=== PATIENT | female | born 1960 | race Caucasian/White ===

== ENCOUNTER 2018-02-18 12:46 | Inpatient (IN) ==
[2018-02-18] MEDS ORDERED: IPRATROPIUM/ALBUTEROL SULFATE 3 ML NEB NEB ONE ×3 (12:57→15:20)
--- NOTE | 2018-02-18 13:13 | PDOC ---
Upper Respiratory HPI - General Chief Complaint: Respiratory Complaint Stated Complaint: DYSPNEA Date Seen by Provider: 02/18/18 Time Seen by Provider: 13:08 Source: POSITIVE: Patient Exam Limitations: POSITIVE: No limitations Nurse's Notes Reviewed & Considered: Yes EMS Report Reviewed & Considered: Unavailable - History of Present Illness Initial Comments: This is a 57-year-old female who presents to the emergency department with a history of increasing shortness of breath and a cough over the last 4 days prior to arrival. She's also had some nasal congestion runny nose and a mild sore throat as well. She was seen by her primary care provider earlier in the week, and was given a shot of anabiotic's and then a prescription for an antibiotic, although she cannot member what it is. She states the shortness of breath became worse today, so she came to the emergency department for treatment. She does have some mild chest pain with the cough, she also has a subjective fever and some chills. She also complains of upper back pain due to the coughing. She is coughing up sputum. She does smoke cigarettes, although she has not smoked for the last 4 days. She is not on oxygen at home, is not normally on inhalers. - Patient Home Medications Home Medications: Home Medications dexlansoprazole 60 mg capsule,biphase delayed release 60 mg PO QDAY 06/18/17 xqcopk-tiyuipop-rwlcjxi 4,000-25,000-20,000 unit capsule,delayed rel 1 cap PO DAILY 06/18/17 mirtazapine 45 mg tablet 45 mg PO QHS 06/18/17 multivit with minerals-folic acid 200 mcg-biotin 300 mcg chew tablet 1 tab PO DAILY 06/18/17 oxycodone 10 mg tablet 30 mg PO Q4-6H PRN 06/18/17 oxycodone ER 10 mg tablet,crush resistant,extended release 12 hr 10 mg PO Q12H 06/18/17 food supplement, lactose-reduced oral liquid 1 ea PO BID-TID #2832 ml 06/24/17 doxycycline hyclate 100 mg capsule 100 mg PO BID #20 cap 02/15/18 ipratropium-albuterol 0.5 mg-3 mg(2.5 mg base)/3 mL nebulization soln 3 ml INH Q4-6H PRN #180 ml 02/15/18 prednisone 20 mg tablet 40 mg PO QDAY 5 Days #10 tab 02/15/18 - Patient Allergies Allergies/Adverse Reactions: Allergies 3 Allergy/AdvReac Type Severity Reaction Status Date / Time No Known Allergies Allergy Verified 02/15/18 09:43 Past Medical History - heen HEENT History: Denies History Cardiovascular History: Hypertension Respiratory History: COPD, Other (please comment) Additional Respiratory History: chronic tobacco abuse Gastrointestinal History: GERD, Gallbladder Disease, Pancreatitis, Other ( please comment) Additional Gastrointestinal History: PT REPORTS "PANCREAS STOPPED PRODUCING LIPASE". MARIBEL. onging abd pain. constipation Genitourinary History: Denies History Endocrine History: Denies History Musculoskeletal History: Arthritis, Joint Pain, Other (please comment) Prosthesis or Implant: Yes (RIGHT HIP) Additional Musculoskeletal History: Rt hip replacement. 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 MARIBEL Anesthesia Reactions: No Malignant Hyperthermia: No Significant Family History: No pertinent family hx Past Medical History Reviewed: Reviewed - No Changes ROS - Limitations ROS Limitations: No Limitations Constitution: REPORTS: Chills, Fever (Subjective) Cardiovascular: REPORTS: Chest Pain (With coughing) Respiratory: REPORTS: Cough Productive, Hurts To Breathe, Shortness Of Breath Neurological: REPORTS: Dizziness Gastrointestinal: DENIES: Abdominal Pain, Nausea, Vomitting Musculoskeletal: REPORTS: Back Pain (Upper back pain due to coughing). DENIES: Lower Extremity Swelling Genitourinary: REPORTS: Denies Symptoms ENT: REPORTS: Nasal Drainage, Sore Throat Skin: REPORTS: Denies Skin Symptoms Upper Respiratory/Fever Exam - General Appearance General Appearance: REPORTS: Alert, Moderate Distress - HEENT HEENT: POSITIVE: PERRL. NEGATIVE: Scleral Icterus - Neck Neck: REPORTS: Normal Inspection, Supple - Respiratory Respiratory: REPORTS: Fatigue, Decreased Air Movement (Poor inspiratory effort) , Speaks Broken Sentences, Other (Patient is to tachypneic) - Abdomen Additional Abdominal Details: Abdomen soft, nontender, nondistended, no obvious organomegaly. Active bowel sounds. - Skin Skin: REPORTS: Warm, Dry - Extremities Additional Extremities Details: No pitting edema. - Neurological / Psychological Neurological: POSITIVE: Affect Apporpriate Upper Resp/Fever Progress - Results Reviewed by me Xrays/CTs/US Reviewed by me: Yes Discussed with Radiologist: Yes Radiology Findings: No evidence of any pneumonia Lab Results Reviewed by Me: Yes CBC and BMP: 02/18/18 13:36 02/18/18 13:36 Lab Results:: Laboratory Results 3 02/18/18 02/18/18 02/18/18 13:00 13:36 13:36 WBC 8.72 RBC 6.31 H Hgb 17.4 H Hct 53.0 H MCV 84.0 MCH 27.6 MCHC 32.8 L RDW Std Deviation 45.2 RDW Coeff of Steve 14.8 H Plt Count 268 MPV 10.1 Neutrophils % (Manual) 52 Band Neutrophils % 0 Lymphocytes % (Manual) 42 Monocytes % (Manual) 5 Eosinophils % (Manual) 1 Basophils % (Manual) 0 Metamyelocytes % 0 Myelocytes % 0 Promyelocytes % 0 Blast Cells 0 WBC Morphology Comment See comments Plt Morphology Comment Normal morphology RBC Morph Comment Normal morphology VBG pH 7.39 VBG pCO2 40 L VBG HCO3 24 VBG Base Excess -1 Sodium 140 Potassium 4.9 Chloride 101 Carbon Dioxide 24 Anion Gap 15 BUN 22 Creatinine 0.9 Estimated GFR > 60 BUN/Creatinine Ratio 24.44 H Glucose 89 Calculated Osmolality 291.0 Calcium 9.6 - Patient's Progress Re-Examine Time: 16:11 Re-Examine Comment: Work of breathing mildly improved but still feeling short of breath. Coughing better. Status: POSITIVE: Improved MDM / ED Course: Emergency room course: After initial evaluation, an IV was started, labs were drawn, x-ray was ordered. She was given multiple DuoNeb and albuterol nebs as well as IV steroids. When all the labs reviewed, x-rays reviewed, they're discussed with the patient. After the multiple of the posterior treatments, she her cough is improved and she felt somewhat better, but still feeling short of breath. She is still eating 5 L by oxygen mask to keep her sats above 90%. Due to the persistent significant hypoxemia, I believe she is being admitted as a COPD exacerbation. Air Movement: Fair Antibiotics Given: No Nebulizer Treatment Given:: Yes Quality Measure Initiative: CAP: POSITIVE: SaO2 - Consult Counseled: POSITIVE: Patient, RE: Lab Results, RE: Radiology Results, RE: DX Patient Care Time - Estimated PCT Patient Care Time (In Minutes): 20 Vital Signs - Recent Vital Signs Vital Signs: Vital Signs (Last 8 hours) Temp Pulse Pulse Resp BP Pulse Ox 02/18/18 15:39 97 24 02/18/18 15:38 95 20 96 02/18/18 15:26 95 24 02/18/18 15:25 99 20 96 02/18/18 14:25 90 24 02/18/18 14:24 104 H 20 99 02/18/18 13:52 82 22 02/18/18 13:51 80 20 98 02/18/18 13:24 87 20 02/18/18 13:23 84 20 99 02/18/18 12:59 101 H 22 02/18/18 12:58 102 H 24 94 02/18/18 12:48 95.7 F L 113 H 22 161/103 84 Discharge Clinical Impression: COPD (chronic obstructive pulmonary disease) with chronic bronchitis Discharge Disposition: Admit to Inpatient Condition: Serious Patient Instructions Given at Discharge: COPD (Chronic Obstructive Pulmonary Disease) (ED) Follow Up With: IRINA FLOWERS [Primary Care Provider] - Date Decision to Admit to Inpatient: 02/18/18 Time Decision to Admit to Inpatient: 16:14
[2018-02-18] MEDS ORDERED: Sodium Chloride 0.9% 1,000 ML PRIMARY IV ONE (13:15)
[2018-02-18] MEDS ORDERED: methylPREDNISolone 125 MG/2 ML VIAL IVP ONE (13:15)
[2018-02-18] MEDS: ALBUTEROL SULFATE 2.5 MG/3 ML NEB PRN ×3 (13:23→14:24)
[2018-02-18 13:40] LABS: Hemoglobin [HGB] 17.4 g/dL (12.0-16.0); MEAN CORPUSCULAR HEMOGLOBIN 27.6 PG (27-31); MEAN CORPUSCULAR HGB CONC 32.8 g/dL (33-37); MEAN PLATELET VOLUME 10.1 FL (7.4-12.2); RED BLOOD COUNT 6.31 10^6/uL (4.20-5.40)
[2018-02-18 13:51] LABS: BLOOD UREA NITROGEN 22 mg/dL (7-22); BUN/CREATININE RATIO 24.44 (6-20)
[2018-02-18 13:58] LABS: PLATELET MORPHOLOGY COMMENT NORMAL MORPHOLOGY (NORM); RBC MORPHOLOGY COMMENT NORMAL MORPHOLOGY (NORM); WBC MORPHOLOGY COMMENT SEE COMMENTS (NORM)
[2018-02-18 13:59] LABS: BAND NEUTROPHILS % 0 % (0-10); BASOPHILS % (MANUAL) 0 % (0-1); EOSINOPHILS % (MANUAL) 1 % (0-8); METAMYELOCYTES % 0 %; MONOCYTES % (MANUAL) 5 % (0-12); MYELOCYTES % 0 %; NEUTROPHILS % (MANUAL) 52 % (50-80); PROMYELOCYTES % 0 %
[2018-02-18 14:00] LABS: VENOUS PH 7.39 (7.32-7.42)
--- NOTE | 2018-02-18 14:02 | EKG ---
Measurements Intervals [place] Rate: 89 P: 82 [place]: 141 QRS: 83 QRSD: 81 T: 90 QT: 339 QTc: 386 Interpretive Statements SINUS RHYTHM WITH OCCASIONAL VENTRICULAR PREMATURE COMPLEXES POSSIBLE RIGHT ATRIAL ENLARGEMENT NONSPECIFIC ST- T-WAVE ABNORMALITY Compared to ECG 11/14/2015 14:58:45 Ventricular premature complex(es) now present T-wave abnormality now present Electronically Signed On 02-19-18 11:30:14 MST by Dung Bethea [email or web address]
--- NOTE | 2018-02-18 14:11 | DI ---
XR CXR 2VW PA/LAT,02/18/2018 1:15 PM: Clinical History: Cough Previous Exam: February 15, 2018 Findings: PA and lateral views of the chest are obtained, and demonstrate clear lungs. The cardiomediastinum an d bony thorax are unremarkable. Impression: No acute cardiopulmonary disease.
[2018-02-18] MEDS ORDERED: ALBUTEROL SULFATE 2.5 MG/3 ML NEB SCH (15:30)
[2018-02-18] MEDS ORDERED: ALBUTEROL SULFATE 2.5 MG/3 ML NEB ONE (15:34)
[2018-02-18] MEDS ORDERED: LIDOCAINE W/ SODIUM BICARB 0.5 ML SYR SUBD PRN (17:08)
[2018-02-18] MEDS ORDERED: ALBUTEROL SULFATE 2.5 MG/3 ML NEB PRN (17:08)
--- NOTE | 2018-02-18 17:08 | PDOC ---
HPI - History of Present Illness Date of Service: 02/18/18 Time of Service: 17:00 Chief Complaint: Cough, shortness of breath of one-week duration History of Present Illness: This is a 57 years old female with medical history significant for history of chronic pancreatitis, GERD, chronic pain syndrome who came into the hospital with history of cough and shortness of breath that started a week ago. a week ago she started to have congestion and some headache so her primary told her she had some allergies and to use some Claritin that did not help but 2 days ago she went to the urgent care as she was having now cough with phlegm production was clear and now yellow and increasing shortness of breath. She was diagnosed with COPD exacerbation and she was given antibiotic, steroid and breathing treatments. She continued to feel short of breath. however she did not use the breathing treatments only once and because of continuing to have symptoms she came into the ER. She was hypoxic she was put on 5 L of oxygen. She was given steroid, breathing treatment and was admitted. Currently she said she feels better compared to when she came in. Shee said the shortness of breath is exertional and when she go from her bed to the bathroom she feels short of breath. A month ago she said she probably could walk about a block. No PND no leg Swelling. No chest pain. Past Medical History Medical History: 1. Tobacco abuse. 2. Bilateral hip arthritis status post right total hip replacement. 3. Chronic pancreatitis. 4. Chronic intermittent abdominal pain of unclear etiology. Surgical History: 1. Right hip replacement. 2. Hysterectomy with left ovary removal Pertinent Family History: Significant for coronary artery disease in both of her parents. Past Social History: Smokes half pack per day. Used to drink but quit over 5 years ago. Worked as a [employer] until about November 2014. , no children. She used to use drugs not anymore Tobacco Use: Current Every Day Smoker Alcohol Use: None Medication / Allergies Home Medications: Home Medications 3 Medication Instructions Recorded Confirmed Type dexlansoprazole 60 mg 60 mg PO QDAY 06/18/17 02/18/18 History capsule,biphase delayed release [id number]-[id number]-lpuiliv 1 cap PO DAILY 06/18/17 02/18/18 History 4,000-25,000-20,000 unit capsule,delayed rel mirtazapine 45 mg tablet 45 mg PO QHS 06/18/17 02/18/18 History multivit with minerals-folic acid 1 tab PO DAILY 06/18/17 02/18/18 History 200 mcg-biotin 300 mcg chew tablet oxycodone 10 mg tablet 30 mg PO Q4-6H PRN 06/18/17 02/18/18 History oxycodone ER 10 mg tablet,crush 10 mg PO Q12H 06/18/17 02/18/18 History resistant,extended release 12 hr food supplement, lactose-reduced 1 ea PO BID-TID #2832 ml 06/24/17 02/18/18 Rx oral liquid doxycycline hyclate 100 mg capsule 100 mg PO BID #20 cap 02/15/18 02/18/18 Rx ipratropium-albuterol 0.5 mg-3 3 ml INH Q4-6H PRN #180 ml 02/15/18 02/18/18 Rx mg(2.5 mg base)/3 mL nebulization soln prednisone 20 mg tablet 40 mg PO QDAY 5 Days #10 tab 02/15/18 02/18/18 Rx Allergies/Adverse Reactions: Allergies 3 Allergy/AdvReac Type Severity Reaction Status Date / Time No Known Allergies Allergy Verified 02/15/18 09:43 Review of Systems - Review of Systems All Systems: Reviewed & No Additional Complaints Except as Stated Exam - Vitals Vital Signs: Vital Signs Temperature 97.3 F Temperature Source Temporal Artery Scan Pulse Rate [Pulse Oximeter 98 Right] Pulse Rate 97 Respiratory Rate 22 Blood Pressure [Left Arm] 161/103 Blood Pressure 152/81 Pulse Ox 97 Oxygen Flow Rate 6 Oxygen Delivery Method Oxymask Height 5 ft 9 in Weight 128 lb 9.6 oz - General General Appearance: No Acute Distress, Thin - Head Head Exam: Normal Inspection - Eye Eye Exam: POSITIVE: Normal Appearance - ENT ENT Exam: POSITIVE: Normal Exam - Neck Neck Exam: Normal Inspection - Respiratory Additional Respiratory Exam Details: Very poor air entry otherwise clear. - Cardiovascular Cardiovascular Exam: POSITIVE: RRR - GI/Abdominal GI/Abdominal Exam: POSITIVE: Normal Bowel Sounds, Non Tender, Non Distended, Soft, No Organomegaly - Rectal Rectal Exam: POSITIVE: Deferred - External Exam: POSITIVE: Deferred Exam: POSITIVE: Deferred - Extremities Extremities Exam: POSITIVE: Normal Inspection - Back Back Exam: POSITIVE: Normal Inspection - Neurological Neurological Exam: POSITIVE: Alert, Oriented x 3, CN II-XII Intact, No Facial Droop, Speech Intact / Clear, Moves All Extremities Equally - Psychiatric Psychiatric Exam: POSITIVE: Normal Affect - Integumentary Integumentary Exam: POSITIVE: Normal Color Results - Labs CBC and BMP: 02/18/18 13:36 02/18/18 13:36 - EKG Data -: EKG Interpreted by Me Rate: Normal EKG Shows Normal: Sinus Rhythm - EKG Data Additional EKG Details: Some ST depression in the inferior leads noted - Imaging Status: Report Reviewed by Me (Chest X ray No acute cardiopulmonary disease.) Assessment and Plan - Patient Problems (1) COPD exacerbation Current Visit: Yes Status: Acute Comment: We'll treat her as such will put her on steroids, antibiotics and breathing treatments. Continue with oxygen. Code(s): J44.1 - Chronic obstructive pulmonary disease with (acute) exacerbation (2) Chronic pancreatitis Current Visit: No Status: Chronic Comment: Continue with her enzyme replacement (3) Chronic abdominal pain Current Visit: No Status: Acute Comment: Probably secondary to her chronic hepatitis continue her previous pain medications Code(s): R10.9 - Unspecified abdominal pain; G89.29 - Other chronic pain (4) Gastroesophageal reflux disease Current Visit: No Status: Chronic Comment: Continue previous meds
[2018-02-18] MEDS: Sodium Chloride 0.9% 1,000 ML PRIMARY IV SCH (18:38)
[2018-02-18] MEDS: cefTRIAXone Inj 1 GM in Sodium Chloride 0.9% 100 ML IV SCH (18:38)
[2018-02-18] MEDS: oxyCODONE IR Tab 5 MG TAB PO PRN (18:40)
[2018-02-18] MEDS: IPRATROPIUM/ALBUTEROL SULFATE 3 ML NEB NEB SCH (18:53)
[2018-02-18] MEDS ORDERED: IPRATROPIUM BROMIDE 0.5 mg/2.5 ML NEB SCH (19:00)
[2018-02-18] MEDS ORDERED: Sodium Chloride 0.9% 100 ML IV ONE (19:17)
[2018-02-18] MEDS: LIPASE/PROTEASE/AMYLASE 1 EACH CAPSULE PO SCH (19:20)
[2018-02-18] MEDS: methylPREDNISolone 40 MG/1 ML VIAL IVP SCH (19:20)
[2018-02-18] MEDS ORDERED: ONDANSETRON 4 MG/2 ML VIAL IVP PRN (19:39)
[2018-02-18] MEDS ORDERED: LIPASE/PROTEASE/AMYLASE 1 EACH CAPSULE PO PRN (19:40)
[2018-02-18] MEDS: Mirtazapine Tab 30 MG TAB PO SCH (20:25)
[2018-02-18] MEDS: oxyCODONE ER 10 MG TAB PO SCH (20:25)
[2018-02-19] MEDS: methylPREDNISolone 40 MG/1 ML VIAL IVP SCH ×4 (00:27→21:09)
[2018-02-19] MEDS: oxyCODONE IR Tab 5 MG TAB PO PRN ×4 (00:27→19:24)
[2018-02-19] MEDS: IPRATROPIUM/ALBUTEROL SULFATE 3 ML NEB NEB SCH ×4 (00:40→18:41)
[2018-02-19 04:50] LABS: BASOPHILS # (AUTO) 0.01 10*3/UL; BASOPHILS % (AUTO) 0.2 % (0-1); EOSINOPHILS # (AUTO) 0 10*3/UL; EOSINOPHILS % (AUTO) 0 % (0-8); Hematocrit [HCT] 46.7 % (37.0-47.0); Hemoglobin [HGB] 15.1 g/dL (12.0-16.0); LYMPHOCYTES # (AUTO) 0.57 10*3/uL; MEAN CORPUSCULAR HEMOGLOBIN 27.7 PG (27-31); MEAN CORPUSCULAR HGB CONC 32.3 g/dL (33-37); MEAN CORPUSCULAR VOLUME 85.5 FL (81-99); MEAN PLATELET VOLUME 9.8 FL (7.4-12.2); MONOCYTES # (AUTO) 0.08 10*3/UL (0.3-0.8); MONOCYTES % (AUTO) 1.7 % (5-15); NEUTROPHILS # (AUTO) 3.93 10*3/UL; NEUTROPHILS % (AUTO) 85.5 % (50-80); RED BLOOD COUNT 5.46 10^6/uL (4.20-5.40)
[2018-02-19 04:58] LABS: BLOOD UREA NITROGEN 17 mg/dL (7-22); BUN/CREATININE RATIO 21.25 (6-20); SERUM ALBUMIN 4.2 g/dL (3.5-4.8)
[2018-02-19 05:05] LABS: PLATELET MORPHOLOGY COMMENT NORMAL MORPHOLOGY (NORM); RBC MORPHOLOGY COMMENT NORMAL MORPHOLOGY (NORM); WBC MORPHOLOGY COMMENT NORMAL MORPHOLOGY (NORM)
[2018-02-19] MEDS: OMEPRAZOLE 40 MG CAPSULE PO SCH (05:53)
[2018-02-19] MEDS: Sodium Chloride 0.9% 1,000 ML PRIMARY IV SCH ×2 (05:54→12:54)
[2018-02-19] MEDS: LIPASE/PROTEASE/AMYLASE 1 EACH CAPSULE PO SCH ×2 (06:43→13:06)
[2018-02-19] MEDS: oxyCODONE ER 10 MG TAB PO SCH ×2 (08:33→21:09)
[2018-02-19] MEDS ORDERED: LIPASE PROTEASE AMYLASE PO SCH (09:00)
--- NOTE | 2018-02-19 10:35 | PDOC(PROG) ---
Interval History: Patient is feeling a little better today but still short of breath and cough very tight patient says she is an active smoker stopped smoking about 3 days ago where she felt too sick to smoke. Severe emphysema on CAT scan in 2016 patient comes in with hypoxia with the requiring 5 L. Objective : Data - Labs CBC and BMP: 02/19/18 04:29 02/19/18 04:29 Objective : Exam - General General Appearance: Cooperative - Respiratory Respiratory Exam: Decreased Breath Sounds, Rhonci, Wheezes - Cardiovascular Cardiovascular Exam: RRR, No Murmur, No Clicks, No Gallops, No Rubs, PMI Non- Displaced - GI/Abdominal GI/Abdominal Exam: Normal Bowel Sounds, Non Tender, Non Distended, Soft, No Masses, No Hepatomegaly, No Splenomegaly, No Organomegaly Assessment and Plan - Patient Problems (1) COPD exacerbation Current Visit: Yes Status: Acute Comment: Continue IV steroids and antibiotics we'll order CT scan of her chest rule out PE or pneumonia age and is hypoxic with the normal chest x-ray she does have a history of COPD never had pulmonary function test done Code(s): J44.1 - Chronic obstructive pulmonary disease with (acute) exacerbation (2) Chronic abdominal pain Current Visit: No Status: Acute Comment: Continue pancreatic enzymes Code(s): R10.9 - Unspecified abdominal pain; G89.29 - Other chronic pain (3) Chronic pancreatitis Current Visit: No Status: Chronic (4) Gastroesophageal reflux disease Current Visit: No Status: Chronic
[2018-02-19] MEDS: NICOTINE 21 MG /DAY PATCH TRANSDERM SCH (11:45)
--- NOTE | 2018-02-19 12:08 | DI ---
EXAM: CT Angiography Chest Without And With Intravenous Contrast CLINICAL HISTORY: ITS.REASON shortness of breath, hypoxia, cough Physician Notes: Tech Comments: TECHNIQUE: Axial computed tomographic angiography images of the chest without and with intravenous contrast using pulmonary embolism protocol. MIP reconstructed images were created and reviewed. Coronal and sagittal reformatted images were created and reviewed. COMPARISON: CT chest 08/12/15 FINDINGS: Pulmonary arteries: No pulmonary embolism. Slightly prominent main pulmonary arteries may be from pulmonary arterial hypertension. Aorta: No acute findings. No thoracic aortic aneurysm. Lungs: Moderate to severe emphysema. Peribronchial thickening. Mild bibasilar lung atelectasis. Small calcified lung nodules. No mass. Pleural space: Unremarkable. No significant effusion. No pneumothorax. Heart: Unremarkable. No cardiomegaly. No significant pericardial effusion. No evidence of RV dysfunction. Bones/joints: No acute fracture. No dislocation. Soft tissues: Unremarkable. Lymph nodes: Small mediastinal lymph nodes. Liver: Hepatomegaly. Gallbladder and bile ducts: Cholecystectomy. IMPRESSION: 1. No pulmonary embolism. 2. Moderate to severe emphysema. 3. Peribronchial thickening may be bronchiolitis. Mild bibasilar lung atelectasis.
[2018-02-19] MEDS ORDERED: CREON 12000 UNIT PO PRN (12:51)
[2018-02-19] MEDS ORDERED: CREON 12000 UNIT PO SCH (17:00)
[2018-02-19] MEDS: CREON 12000 UNIT PO SCH (17:04)
[2018-02-19] MEDS: cefTRIAXone Inj 1 GM in Sodium Chloride 0.9% 100 ML IV SCH (17:04)
[2018-02-19] MEDS: Mirtazapine Tab 30 MG TAB PO SCH (21:09)
[2018-02-20] MEDS: IPRATROPIUM/ALBUTEROL SULFATE 3 ML NEB NEB SCH ×3 (01:21→13:32)
[2018-02-20] MEDS: methylPREDNISolone 40 MG/1 ML VIAL IVP SCH ×3 (01:28→13:02)
[2018-02-20] MEDS: Sodium Chloride 0.9% 1,000 ML PRIMARY IV SCH ×2 (01:31→06:27)
[2018-02-20] MEDS: OMEPRAZOLE 40 MG CAPSULE PO SCH (05:34)
[2018-02-20] MEDS: oxyCODONE IR Tab 5 MG TAB PO PRN ×2 (05:46→11:51)
[2018-02-20] MEDS: CREON 12000 UNIT PO SCH ×2 (06:55→11:51)
[2018-02-20] MEDS: NICOTINE 21 MG /DAY PATCH TRANSDERM SCH (08:02)
[2018-02-20] MEDS: oxyCODONE ER 10 MG TAB PO SCH (08:02)
[2018-02-20] MEDS ORDERED: Patch Removal NICOTINE PATCH TRANSDERM SCH (09:00)
--- NOTE | 2018-02-20 09:45 | DCSUMMARY ---
Hospitalization Summary Hospital Course: Final Discharge Diagnosis: Current Visit Problems Problem Status Onset Code COPD (chronic obstructive pulmonary disease) with chronic bronchitis Acute J44.9 COPD exacerbation Acute J44.1 Diagnostic Data, Laboratory Data, and Procedures of Signifigance: Laboratory Results 02/20/18 Range/Units 09:12 Lipase 190 (23-300) IU/L CBC and BMP 02/19/18 04:29 02/19/18 04:29 History and Physical pertinent to Admission: Course of Hospitalization: This very nice 57-year-old female active smoker of one pack daily. History of chronic pancreatitis from alcohol abuse on chronic pain medication comes in with the shortness of breath and cough diagnosed with the COPD exacerbation. CT scan revealed no PE didn't show emphysema. Blood gases were within normal limits with no CO2 retention patient improved with IV steroids and antibiotics on room air challenge as she desatted to 86% by respiratory therapy Beatrice we have written scripts for her to be sent home on oxygen. Patient is back to her baseline and would like to be discharged home this afternoon. The is in the room he is going go home and have the oxygen set up and will come back later today to get her I told her I have called in prescriptions for Zithromax and prednisone. The prednisone is 40 mg daily for 5 days and she will take Zithromax 5003 days patient understands and agrees discussed with nursing On the date of discharge, the patient was examined: Gen.: No acute distress, alert, nontoxic Heart: Regular rate and rhythm, no murmurs, clicks, gallops, or rubs Lungs: Clear to auscultation bilaterally, breathing is nonlabored Abdomen/GI: Normal tones on auscultation, soft, nontender, nondistended Musculoskeletal/extremities: No clubbing, cyanosis, or edema Vitals reviewed and are listed below Vital Signs (24 hrs) Temp Pulse Pulse Resp BP BP Pulse Ox 02/20/18 08:18 98.3 F 81 20 166/82 94 02/20/18 07:13 70 20 02/20/18 07:12 64 20 90 02/20/18 07:00 74 81 20 95 02/20/18 05:00 97.2 F 76 14 163/85 94 02/20/18 03:20 94 02/20/18 03:00 72 02/20/18 01:23 91 02/20/18 01:22 71 15 98 02/20/18 01:21 69 15 91 02/20/18 00:11 98.1 F 73 20 135/56 96 02/19/18 22:52 87 02/19/18 21:12 99.1 F 82 24 163/78 93 02/19/18 19:35 97.5 F 79 75 16 161/78 95 02/19/18 19:00 91 02/19/18 18:42 79 16 100 02/19/18 18:41 79 16 98 02/19/18 16:25 97.2 F 97 20 139/81 96 02/19/18 16:10 97.9 F 77 18 165/76 92 02/19/18 15:00 82 91 02/19/18 12:20 78 18 02/19/18 12:19 82 18 95 02/19/18 11:50 98.1 F 72 12 145/71 97 02/19/18 11:00 97 Assessment and Plan: 1. As per discharge assessments above 2. Disposition: Home 3. Condition on discharge, stable and improved. 4. Diet: regular diet 5. Activities: resume normal activities 6. Follow-Up: 1. PCP primary care physician as scheduled I told her most likely should speak to her about having pulmonary function test and referral to city detective 2. 7. Medications at the Time of Discharge: Home Medications 3 Medication Instructions Recorded Confirmed Type dexlansoprazole 60 mg 60 mg PO QDAY 06/18/17 02/18/18 History capsule,biphase delayed release vicavq-hstytdbp-iehauzr 1 cap PO DAILY 06/18/17 02/18/18 History 4,000-25,000-20,000 unit capsule,delayed rel mirtazapine 45 mg tablet 45 mg PO QHS 06/18/17 02/18/18 History multivit with minerals-folic acid 1 tab PO DAILY 06/18/17 02/18/18 History 200 mcg-biotin 300 mcg chew tablet oxycodone 10 mg tablet 30 mg PO Q4-6H PRN 06/18/17 02/18/18 History oxycodone ER 10 mg tablet,crush 10 mg PO Q12H 06/18/17 02/18/18 History resistant,extended release 12 hr food supplement, lactose-reduced 1 ea PO BID-TID #2832 ml 06/24/17 02/18/18 Rx oral liquid ipratropium-albuterol 0.5 mg-3 3 ml INH Q4-6H PRN #180 ml 02/15/18 02/18/18 Rx mg(2.5 mg base)/3 mL nebulization soln Azithromycin [Zithromax Tri-Bayron] 500 mg PO DAILY #3 tab 02/20/18 Rx Creon 12,000 Unit Capsule 3 cap PO TID MEALS 02/20/18 Rx Prednisone [Deltasone] 40 mg PO DAILY 5 Days #10 tab 02/20/18 Rx 8. Time, care, counseling and coordination of care for this discharge is greater than 30 minutes. Exam - Vitals Vital Signs: Vital Signs Temperature 98.3 F Temperature Source Oral Pulse Rate [Pulse Oximeter 81 Right] Pulse Rate 70 Respiratory Rate 20 Blood Pressure [Right Arm] 166/82 Blood Pressure [Left Arm] 135/56 Blood Pressure 152/81 Pulse Ox 94 Oxygen Flow Rate 1 Oxygen Delivery Method Nasal Cannula Height 5 ft 9 in Weight 135 lb 8 oz Patient Problems - Patient Problem List (1) COPD exacerbation Current Visit: Yes Status: Acute Code(s): J44.1 - Chronic obstructive pulmonary disease with (acute) exacerbation Category: Medical (2) Chronic abdominal pain Current Visit: No Status: Acute Code(s): R10.9 - Unspecified abdominal pain ; G89.29 - Other chronic pain Category: Medical (3) Chronic pancreatitis Current Visit: No Status: Chronic Comment: Acute Pancreatitis 02/2010 Category: Medical (4) Gastroesophageal reflux disease Current Visit: No Status: Chronic Comment: 2008 EGD Category: Medical
[2018-02-20 09:46] LABS: VENOUS PH 7.37 (7.32-7.42)
[2018-02-20 11:15] VITALS: BP 148/76; TEMP 98.8
[2018-02-20] MEDS: cefTRIAXone Inj 1 GM in Sodium Chloride 0.9% 100 ML IV SCH (13:02)
[2018-02-20 13:35] VITALS: RESP 20; O2SAT 92
== END 2018-02-20 14:50 | disposition home or self-care (01) | DRG 192 ==
LOC: ER 12:46 → MED/SURG 16:29
PROVIDERS: ADMIT Internal Medicine; ATTEND Internal Medicine